=== PATIENT | female | born 1975 ===

== ENCOUNTER 2025-07-03 17:52 | Emergency (ER) | payer SELFPAY ==
[2025-07-03] MEDS ORDERED: Ondansetron PF 4 MG/2 ML Vial ONE (19:36)
[2025-07-03] MEDS ORDERED: Ketorolac Tromethamine 30 MG (1 mL) VIAL ONE (19:36)
[2025-07-03] MEDS ORDERED: Acetaminophen 500 MG TAB ONE (19:36)
[2025-07-03 19:43] LABS: BHCG - Serum Negative (NEGATIVE); Pregs Control Background? CLEAR/WHITE (CLR/WHITE); Pregs Control Bar Appear? YES (CONTROL BAR)
[2025-07-03 19:44] LABS: Hematocrit 34.8 % (36.0-47.0); Hemoglobin 11.2 g/dL (12.0-16.0); Mean Corpuscular Hemoglobin 25.8 pg (27.0-31.0); Mean Corpuscular Volume 80.2 fL (78.0-98.0); Platelet Count 313 10x3/uL (130-400); Red Blood Cell (RBC) Count 4.34 mill/uL (4.20-5.40); White Blood Cell (WBC) Count 8.93 10x3/uL (4.8-10.8)
[2025-07-03 19:50] LABS: Lipase 60 U/L (8-78)
[2025-07-03 19:53] LABS: Acetaminophen Less than 10 mcg/mL (Less than 10); Salicylate Less than 8.0 mg/dL (Less than 8.0)
[2025-07-03 20:14] LABS: Anisocytosis SLIGHT = 6-15 cells HPF (0-5); Burr Cells SLIGHT = 2-5 cells HPF (0-1); Macrocytosis SLIGHT = 6-15 cells HPF (0-5); Platelet Adequacy Comment Platelets Normal; Polychromasia SLIGHT = 2-3 cells HPF (0-2); Smudge Cells 9.0 %
[2025-07-03 21:42] LABS: ALT (SGPT) 19 U/L (Less than 34); AST (SGOT) 35 U/L (11-34); Albumin 3.2 g/dL (3.1-4.5); Alkaline Phosphatase 73 U/L (40-110); Anion Gap 15 mmol/L (10-20); BUN (Urea Nitrogen) 15 mg/dL (7.0-18.7); Bilirubin, Total 0.3 mg/dL (0.3-1.2); Calc. Creatinine Clearance 0 mL/min (70-130); Calcium 8.4 mg/dL (7.8-10.44); Carbon Dioxide 20 mmol/L (22-29); Chloride 107 mmol/L (98-107); Globulin 3.1 g/dL (2.4-3.5); Glucose 78 mg/dL (70-105); Potassium 3.7 mmol/L (3.5-5.1); Sodium 138 mmol/L (136-145)
[2025-07-03 21:54] LABS: Glucose, Urine (Dipstick) Normal (Negative); Leukocyte 500 Leu/uL (Negative); Protein, Urine (Dipstick) 50 mg/dL (Neg-Trace); Specific Gravity, Urine 1.037 (1.002-1.036)
[2025-07-03 22:01] LABS: Cocaine Metabolite Screen PRELIM POSITIVE (Negative); THC/Cannabinoid Screen PRELIM POSITIVE (Negative); Tricyclic Screen Negative (Negative)
[2025-07-03 22:10] LABS: CAUTI Indications for Culture Dysuria,urgency,freq; WBC/HPF Greater than 50 HPF (0-3)
[2025-07-03 22:11] LABS: Bacteria/HPF 1+ HPF (None Seen)
[2025-07-03 22:13] LABS: Urine Culture Reflex Yes Yes
== END 2025-07-03 22:48 | disposition home or self-care (01) ==
LOC: ERS 17:52
DX: N39.0 Urinary tract infection, site not specified (principal); B34.9 Viral infection, unspecified; F19.10 Other psychoactive substance abuse, uncomplicated; I10 Essential (primary) hypertension; Z87.891 Personal history of nicotine dependence
CPT/HCPCS: 36415; 71045; 80053; 80306; 80307; 81001; 83605; 83690; 84484; 84703; 85025; 87077; 87086; 87428; 93005; 96361; 96374; 96375; J1885; J2405